=== PATIENT | female | born 1960 | race African-American/Black ===

== ENCOUNTER 2019-12-02 10:07 | Inpatient (IN) | payer OTHER ==
--- NOTE | 2019-12-02 10:41 | RAD ---
Chest AP view INDICATION: 59-year-old female with shortness breath and productive cough COMPARISON: Prior exam dated January 12, 2010 FINDINGS: Lungs: Chronic lung changes are stable. No focal airspace opacity is evident. Cardiac silhouette: There is mild cardiomegaly. Pulmonary vasculature: Normal Pleural spaces: No pleural effusion or pneumothorax is demonstrated. Upper abdomen: No abnormality seen. Osseous structures: No acute osseous abnormality. Additional findings: None. IMPRESSION: 1. Mild cardiomegaly without evidence of cardiac decompensation. 2. Stable chronic lung changes without acute infiltrate.
[2019-12-02 11:59] LABS: #Basophils 0.1 thou/uL (0.0-0.2); #Eosinphils 0.1 thou/uL (0.0-0.7); #Lymphocytes 1.6 thou/uL (1.20-3.40); #Monocytes 0.5 thou/uL (0.11-0.59); #Neutrophils 2.6 thou/uL (1.40-6.50); %Basophils 1.1 % (0.0-1.0); %Eosinophils 2.5 % (0.0-10.0); %Monocytes 9.2 % (0.0-10.0); %Neutrophils 54.3 % (42.0-75.0); Hemoglobin 12.5 g/dL (12.0-16.0); Mean Corpuscular HGB CONC 32.8 g/dL (32.0-36.0); Mean Corpuscular Hemoglobin 29.3 pg (27.0-31.0); Mean Corpuscular Volume 89.1 fL (78.0-98.0); Mean Platelet Volume 10.8 fL (7.4-10.4); Platelet Count 83 thou/uL (130-400); Platelet Morphology Comment Appears Decreased; RBC Distribution Width 14.2 % (11.5-14.5); RBC Morphology Normal; Red Blood Cell (RBC) Count 4.29 mill/uL (4.20-5.40); White Blood Cell (WBC) Count 4.8 thou/uL (4.8-10.8)
[2019-12-02 12:01] LABS: ALT (SGPT) 31 U/L (8-55); AST (SGOT) 40 U/L (5-34); Albumin 3.2 g/dL (3.5-5.0); Alkaline Phosphatase 155 U/L (40-110); Anion Gap 10 mmol/L (10-20); BUN (Urea Nitrogen) 17 mg/dL (9.8-20.1); Bilirubin, Total 0.3 mg/dL (0.2-1.2); Calc. Creatinine Clearance 0 mL/min (70-130); Calcium 8.6 mg/dL (7.8-10.44); Carbon Dioxide 25 mmol/L (22-29); Chloride 107 mmol/L (98-107); Estimated GFR-MDRD 66; Glucose 121 mg/dL (70-105); Potassium 3.1 mmol/L (3.5-5.1); Protein, Total 8.2 g/dL (6.0-8.3); Sodium 139 mmol/L (136-145)
[2019-12-02] MEDS ORDERED: Aspirin Chewable 81 MG TAB ONE (12:50)
[2019-12-02] MEDS ORDERED: Potassium Chloride 20 MEQ TAB ONE (12:50)
[2019-12-02 15:33] LABS: Troponin I 0.063 ng/mL (< 0.028)
[2019-12-02 18:21] LABS: Troponin I 0.039 ng/mL (< 0.028)
[2019-12-02] MEDS ORDERED: Guaifenesin DM 100-10/5 ML UDCUP PO PRN (19:08)
[2019-12-02] MEDS ORDERED: Senokot S 8.6-50 MG TAB PO PRN (19:08)
[2019-12-02] MEDS ORDERED: Dextrose 50% Abboject 50 ML SYRINGE SLOW IVP PRN (19:29)
[2019-12-02] MEDS ORDERED: Dextrose 5% in Water 1,000 ML IV PRN (19:29)
--- NOTE | 2019-12-02 20:23 | HP ---
PRIMARY CARE PHYSICIAN: [facility]. Also sees Dr. Guevara for her HIV medication. HISTORY OF PRESENT ILLNESS: Ms. Tamayo is a very pleasant 59-year-old female, who reported to the emergency room today after she felt worsening shortness of breath, chest tightness, and productive cough. Reports that she has had no prior testing for coronavirus and has not traveled in the last 30 days. She has been released from group home three months ago. She reports history of hypertension and COPD-type changes, but she denies any fever or chills. She reports that Dr. Guevara has seen her for this cough. They initially thought it might be her lisinopril, so he changed up her medications from lisinopril to valsartan and she reports that the cough has not improved. She reports that chest tightness is across her chest. Denies any diaphoresis or nausea with it. Does report some dyspnea on exertion. She also reports that she has been treated for hep C, while she was in group home and did finish the treatment. In the emergency room, she was found to have a decreased platelet count of 83, elevated troponin in the indeterminate range, potassium at 3.1, elevated alkaline phosphatase at 155 and AST at 40. Her ALT was 31. Lactic acid was 1. Chest x-ray shows mild cardiomegaly without any evidence of decompensation and two stable chronic lung changes without any acute infiltrate. She is going to be admitted to the telemetry unit and the COVID unit for further workup. REVIEW OF SYSTEMS: CONSTITUTIONAL: She is nontoxic appearing. She is alert and awake and oriented. EYES: She denies any eye pain. No visual changes. ENT: Denies any sore throat, rhinorrhea, or any voice changes. CARDIOVASCULAR: She does report some generalized chest pain, substernal. RESPIRATORY: Does report cough, reports sputum. Denies stridor. Does report some dyspnea on exertion. GI: She denies any abdominal pain, but she reports that her abdomen is more swollen than normal. She denies any nausea or vomiting. MUSCULOSKELETAL: Denies any changes. All systems are reviewed and are negative unless mentioned in the HPI. PAST MEDICAL HISTORY: HIV; hypertension; diabetes, type 2; hyperlipidemia; COPD; and sleep apnea. She did have hep C, which has been treated. SURGICAL HISTORY: She has had a hysterectomy and a cholecystectomy. PSYCHIATRIC HISTORY: Bipolar and depression. SOCIAL HISTORY: She is a one pack a day smoker and has for at least the last 10 years. PHYSICAL EXAMINATION: VITAL SIGNS: Blood pressure 154/96, pulse is 96, respiratory rate is 14, and pO2 sats are 96% on room air. CONSTITUTIONAL: The patient appears nontoxic. She is alert and oriented to person, place, and time. HEAD: Atraumatic and normocephalic. EYES: Pupils are equally round and reactive to light. Extraocular muscles are intact. ENT: Mouth exam is normal. Mucous membranes are moist. NECK: Normal range of motion. Trachea is midline. RESPIRATORY/CHEST: Breath sounds are clear. Chest expansion is equal. CARDIOVASCULAR: Regular rate and rhythm. Heart sounds are normal. ABDOMEN: Mildly distended. No guarding. No rebound. BACK: Normal range of motion. No tenderness. EXTREMITIES: Upper extremity; normal range of motion. Sensation intact. Radial pulses are normal. Lower extremity; normal range of motion. Pedal pulses are normal. There is no edema noted. NEURO: The patient was oriented to person, place, and time. Speech is normal. SKIN: Warm, dry, normal in color. PSYCH: Has a normal affect. ALLERGIES: NONE. CURRENT MEDICATIONS: There are no medications in the ER system. She does report that she takes three medications for her blood pressure, she takes her HIV medication and is compliant with those, and takes a medication for her diabetes. That is all she could tell me at the bedside. ASSESSMENT/PLAN: 1. Chest pain. We will trend troponins. We will see how she is doing tomorrow. On the day 2 tomorrow, may need to decide if she needs a stress test and if so, she had a COVID rule out test today and so we will have to wait till that is negative depending on the troponins. Otherwise, Cardiology might be considered and she might be able to be seen in the office depending on how her lab values and how she feels. 2. Hypertension. We will restart her home medications once reconciled. 3. History of human immunodeficiency virus. We will restart this home medication once we get the name and dose. 4. Hyperlipidemia. We will check fasting lipids in the morning and may start her on a statin, although her liver enzymes, one of the two were elevated. So, we will see what the lipid panel shows in the morning. 5. History of chronic obstructive pulmonary disease. We will put some nebs on her just in case, especially with this cough that she has and some cough medicine. 6. Smoking cessation counseling offered. 7. Deep venous thrombosis and gastrointestinal prophylaxis started. 8. Thrombocytopenia, it is unclear if this is new or acquired. 9. We will check magnesium and phos as well on her. 10. Hospital course is dependent on clinical findings. Job ID: [id number]
[2019-12-02] MEDS ORDERED: Ondansetron PF 4 MG/2 ML Vial IVP PRN (21:16)
[2019-12-02] MEDS ORDERED: Acetaminophen 325 MG TAB PO PRN (21:16)
[2019-12-02] MEDS ORDERED: Ondansetron ODT 4 MG TAB SL PRN (21:16)
[2019-12-02] MEDS: Nicotine 14 MG PATCH TD SCH (21:17)
[2019-12-02] MEDS: Famotidine 20 MG TAB PO SCH (21:43)
[2019-12-02] MEDS ORDERED: Albuterol 200 PUFF (6.7GM INHALER) INH PRN (21:55)
[2019-12-02] MEDS ORDERED: hydrALAZINE 20 MG/ML VIAL SLOW IVP SCH (22:00)
[2019-12-02] MEDS: Benzonatate 100 MG CAP PO PRN (22:35)
[2019-12-03] MEDS: Diabetic Tussin DM 5 ML UDCUP PO PRN (01:37)
[2019-12-03 05:13] LABS: #Eosinphils 0.1 thou/uL (0.0-0.7); #Lymphocytes 1.2 thou/uL (1.20-3.40); #Monocytes 0.5 thou/uL (0.11-0.59); #Neutrophils 2.5 thou/uL (1.40-6.50); %Basophils 0.3 % (0.0-1.0); %Eosinophils 1.4 % (0.0-10.0); %Lymphocytes 27.4 % (21.0-51.0); %Monocytes 11.9 % (0.0-10.0); %Neutrophils 59.1 % (42.0-75.0); Hemoglobin 11.5 g/dL (12.0-16.0); Mean Corpuscular HGB CONC 33.2 g/dL (32.0-36.0); Mean Corpuscular Hemoglobin 29.7 pg (27.0-31.0); Mean Corpuscular Volume 89.4 fL (78.0-98.0); Mean Platelet Volume 10.9 fL (7.4-10.4); Platelet Count 70 thou/uL (130-400); RBC Distribution Width 14.3 % (11.5-14.5); Red Blood Cell (RBC) Count 3.87 mill/uL (4.20-5.40); White Blood Cell (WBC) Count 4.2 thou/uL (4.8-10.8)
[2019-12-03 05:21] LABS: Phosphorus 2.5 mg/dL (2.3-4.7)
[2019-12-03 05:22] LABS: ALT (SGPT) 27 U/L (8-55); AST (SGOT) 39 U/L (5-34); Albumin 2.8 g/dL (3.5-5.0); Alkaline Phosphatase 130 U/L (40-110); Anion Gap 11 mmol/L (10-20); BUN (Urea Nitrogen) 15 mg/dL (9.8-20.1); Bilirubin, Total 0.5 mg/dL (0.2-1.2); Calc. Creatinine Clearance 121 mL/min (70-130); Calcium 8.2 mg/dL (7.8-10.44); Carbon Dioxide 21 mmol/L (22-29); Cardiac Risk 4.3 (Less than 4.5); Chloride 107 mmol/L (98-107); Cholesterol 163 mg/dl (< 200 Desired); Estimated GFR-MDRD 85; Globulin 4.5 g/dL (2.4-3.5); Glucose 123 mg/dL (70-105); HDL Cholesterol 38 mg/dL (>60 Neg Risk); LDL Cholesterol, Calculated 109 mg/dL; Magnesium 1.8 mg/dL (1.6-2.6); Potassium 3.3 mmol/L (3.5-5.1); Protein, Total 7.3 g/dL (6.0-8.3); Sodium 136 mmol/L (136-145); Triglycerides 79 mg/dL (Less than 150)
[2019-12-03] MEDS ORDERED: Potassium Chloride 20 MEQ TAB PO SCH (08:00)
[2019-12-03] MEDS: Valsartan 80 MG TAB PO SCH (08:34)
[2019-12-03] MEDS: Famotidine 20 MG TAB PO SCH ×2 (08:34→20:41)
[2019-12-03] MEDS: Hydrochlorothiazide 25 MG TAB PO SCH (08:35)
[2019-12-03] MEDS: Amlodipine 10 MG TAB PO SCH (08:35)
[2019-12-03] MEDS: Potassium Chloride 10 MEQ TAB PO SCH (08:35)
[2019-12-03] MEDS: Benzonatate 100 MG CAP PO PRN ×2 (08:56→20:45)
[2019-12-03] MEDS ORDERED: Non-Formulary Item 1 EACH (Dolutegravir Sodium [Tivicay] 50 MG) PO SCH (09:00)
[2019-12-03 12:21] LABS: SARS-CoV-2 MS2 Positive; SARS-CoV-2 N Gene Negative; SARS-CoV-2 S Gene Negative; SARS-CoV-2 orf1ab Negative
[2019-12-03] MEDS ORDERED: Iopamidol-370 76% 500 ML 1 ML ONE (13:49)
--- NOTE | 2019-12-03 14:20 | PDOC.HOSPP ---
- Subjective Encounter Date: 12/03/19 Subjective: Still has the cough. Chest and abd pain feel better. She has been coughing for over a month. Saw Dr. Guevara and he thought it might be the ACEI. Changed to ARB. No change. She previously smoked, but quit while she was in [facility] for 9.5 years. Got out in August and started smoking one PPD again. No fever. - Objective Vital Signs & Weight: Vital Signs (12 hours) Temp Pulse Resp BP Pulse Ox 12/03/19 12:10 99.5 F 99 20 145/67 H 97 12/03/19 08:40 98.0 F 94 18 198/88 H 100 Weight Admit Weight 231 lb Weight 231 lb I&O: 12/02/19 12/03/19 12/04/19 06:59 06:59 06:59 Intake Total 900 Output Total 300 200 Balance 600 -200 Result Diagrams: 12/03/19 04:27 12/03/19 04:27 Additional Labs: Accuchecks 12/02/19 21:03 POC Glucose 92 Hospitalist ROS - Medication Medications: Active Medications Generic Name Dose Route Start Last Admin Trade Name Freq PRN Reason Stop Dose Admin Amlodipine Besylate 10 mg 12/03/19 09:00 12/03/19 08:35 Norvasc PO 10 mg DAILY FUNMI Administration Benzonatate 100 mg 12/02/19 22:04 12/03/19 08:56 Tessalon PO 100 mg TIDPRN PRN Administration Cough Famotidine 20 mg 12/02/19 21:00 12/03/19 08:34 Pepcid PO 20 mg BID FUNMI Administration Guaifenesin/Dextromethorphan 15 ml 12/03/19 01:22 12/03/19 01:37 Diabetic Tussin Dm PO 15 ml Q4H PRN Administration Cough Hydrochlorothiazide 12.5 mg 12/03/19 09:00 12/03/19 08:35 Hydrochlorothiazide PO 12.5 mg DAILY FUNMI Administration Nicotine 14 mg 12/02/19 20:00 12/02/19 21:17 Nicoderm Patch TD 14 mg Q24HR FUNMI Administration Potassium Chloride 10 meq 12/03/19 09:00 12/03/19 08:35 Klor-Con 10 PO Not Given DAILY FUNMI Sodium Chloride 10 ml 12/02/19 19:08 12/02/19 22:35 Flush - Normal Saline IVF 10 ml PRN PRN Administration Saline Flush Valsartan 80 mg 12/03/19 09:00 12/03/19 08:34 Diovan PO 80 mg DAILY FUNMI Administration - Exam General Appearance: NAD, awake alert Heart: RRR, no murmur, no gallops, no rubs, normal peripheral pulses Respiratory: CTAB, no wheezes, no rales, no ronchi, normal chest expansion, no tachypnea, normal percussion Gastrointestinal: soft, non-tender, non-distended, normal bowel sounds, no palpable masses, no hepatomegaly, no splenomegaly, no bruit Extremities: no cyanosis, no clubbing, no edema Neurological: no focal deficits Musculoskeletal: normal tone Psychiatric: normal affect, normal behavior, A&O x 3 Hosp A/P (1) Chest pain Code(s): R07.9 - CHEST PAIN, UNSPECIFIED Status: Acute (2) Abdominal pain Code(s): R10.9 - UNSPECIFIED ABDOMINAL PAIN Status: Acute (3) Cough Code(s): R05 - COUGH Status: Acute (4) HIV (human immunodeficiency virus infection) Code(s): B20 - HUMAN IMMUNODEFICIENCY VIRUS [HIV] DISEASE Status: Acute (5) COPD (chronic obstructive pulmonary disease) Status: Acute - Plan CP: Minimal elevation of trops. Indeterminate range. Will discuss with Cards. Has echo pending. May need to see how that looks and then make a decision on stress test. Certainly has risk factors for CAD. Abd Pain: Non-tender on exam. GB US pending. Cough: Negative Covid. Reviewed with Dr. Guevara. DC isolation precautions. Chronic. CT chest. HTN: amlodipine, Diovan. High today. Don't think she got her meds. HIV: Continue home meds.
--- NOTE | 2019-12-03 17:07 | CT ---
CT OF THE CHEST WITH IV CONTRAST INDICATION: 59-year-old female with cough; Covid negative COMPARISON: CTA of the chest dated August 20, 2009 FINDINGS: CHEST: Lungs: Moderate emphysema is stable. No acute airspace opacities noted. Suspicious pulmonary nodule. Pleural space: No effusion. Mediastinum: There are prominent coronary artery and thoracic aortic calcifications. No pathologicall y enlarged lymph nodes are evident. Upper abdomen:The gallbladder is surgically absent. There is a cirrhotic morphology to the liver. Spl een is within normal limits. Adrenal glands are normal appearing. Osseous structures: No acute osseous abnormality. No destructive osteolytic or osteoblastic lesion i s identified. There is scattered degenerative and osteoarthritic changes. Soft tissues:Normal. IMPRESSION: 1. No acute abnormality. 2. Moderate emphysema 3. Cirrhotic morphology of the liver 4. Coronary artery and thoracic aortic calcifications.
[2019-12-03] MEDS: Nicotine 14 MG PATCH TD SCH (20:41)
[2019-12-04] MEDS: Benzonatate 100 MG CAP PO PRN ×2 (03:48→20:37)
--- NOTE | 2019-12-04 08:13 | ULT ---
RIGHT UPPER QUADRANT ULTRASOUND: HISTORY: Distended abdomen. Cirrhosis. Hepatitis C. FINDINGS: The liver has a lobulated appearance consistent with cirrhosis. There is a suggestion of a solid nod ule in the left lobe of the liver measuring 2.9 x 2.4 cm. The patient is post cholecystectomy. The common duct measures 5 mm in diameter. The right kidney and visualized portions of the pancreas are unremarkable. No free fluid is seen in Morison's pouch. Incidental note is made of a 1.1 cm hypoech oic lesion in the spleen. IMPRESSION: 1. Findings are suspicious for a left liver lobe nodule. 2. Status post cholecystectomy. 3. Hyperechoic lesion in the spleen. RECOMMENDATION: Further evaluation with CT scan using the liver mass protocol is recommended. POS: CHANO
[2019-12-04] MEDS: Diabetic Tussin DM 5 ML UDCUP PO PRN (09:23)
[2019-12-04] MEDS: Valsartan 80 MG TAB PO SCH (09:24)
[2019-12-04] MEDS: Hydrochlorothiazide 25 MG TAB PO SCH (09:25)
[2019-12-04] MEDS: Potassium Chloride 10 MEQ TAB PO SCH (09:25)
[2019-12-04] MEDS: Famotidine 20 MG TAB PO SCH ×2 (09:26→20:37)
[2019-12-04] MEDS: Amlodipine 10 MG TAB PO SCH (09:26)
[2019-12-04] MEDS: DOVATO PO SCH (09:28)
--- NOTE | 2019-12-04 11:11 | CT ---
EXAM: CT Abdomen W WO Con PROVIDED CLINICAL HISTORY: Ultrasound examination suggested liver lesion. CT exam is recommended. COMPARISON: Noncontrast CT abdomen on 06/15/2008 FINDINGS: There is linear scar versus atelectasis right lateral costophrenic angle. Lung bases are otherwise cl ear. Postcholecystectomy changes are seen. There is a lobulated contour of the margin of the liver suggesting cirrhosis. No focal hepatic mass o r abnormal area of enhancement is seen within the liver. A more prominent lobulated portion of the liver is seen involving the posterior and medial aspect of the lateral segment left hepatic lobe. Thi s corresponds to findings on ultrasound examination, but this demonstrates similar echogenicity to the liver on all phases of imaging and is most compatible with lobulated area of the hepatic parenchy ma. This is also a stable finding when compared to the prior noncontrasted CT abdomen and pelvis and 2009. This does not represent a mass. The portal vein is patent. A subcentimeter too small to characterize 8 mm hypodense lesion is seen in the lateral aspect body of the spleen. Spleen is at the upper limits of normal in size. The pancreas, bilateral adrenal glands, and kidneys demonstrate a normal CT appearance. Vascular calcifications are seen in the abdominal aorta and involving the iliac arteries. Loops of bowel are normal in caliber. There is no free fluid, fluid collection, or lymphadenopathy seen in the abdomen or pelvis. Multilevel degenerative changes are seen in the spine which are greater involving the lower lumbar sp ine. Slight retrolisthesis of L3 on L4 is identified. IMPRESSION: 1. Cirrhotic morphology of the liver. A larger lobulated portion of the liver is seen involving the m ore medial and posterior aspect of the lateral segment left hepatic lobe. This finding was also seen on study in 2008. This finding does correspond to site of abnormality on prior ultrasound examin ation. This demonstrates echogenicity similar to the adjacent hepatic parenchyma, and this does not represent a discrete mass like lesion. No hepatic mass is visualized on this exam. 2. Subcentimeter too small to characterize hypodense lesion peripheral aspect body of the spleen whic h likely corresponds to the hyperechoic focus on recent sonographic evaluation. 3. Cholecystectomy.
[2019-12-04] MEDS: Insulin Regular 300 UNITS/3 ML VIAL SC PRN (12:47)
[2019-12-04] MEDS ORDERED: Iopamidol-370 76% 500 ML 1 ML ONE (16:29)
--- NOTE | 2019-12-04 17:03 | PDOC.HOSPP ---
- Subjective Encounter Date: 12/04/19 Subjective: Patient is feeling generally well today. Her abdominal pain has significantly improved. No other complaints. - Objective Vital Signs & Weight: Vital Signs (12 hours) Temp Pulse Resp BP Pulse Ox 12/04/19 12:00 98.4 F 87 17 163/74 H 99 12/04/19 09:26 88 12/04/19 08:00 98.4 F 88 18 162/71 H 94 L Weight Admit Weight 231 lb Weight 220 lb 12.8 oz I&O: 12/03/19 12/04/19 12/05/19 06:59 06:59 06:59 Intake Total 900 790 Output Total 300 600 Balance 600 190 Result Diagrams: 12/03/19 04:27 12/03/19 04:27 Additional Labs: Accuchecks 12/04/19 12/04/19 12/03/19 10:21 06:14 17:36 POC Glucose 236 H 121 H 114 H 12/03/19 12:09 POC Glucose 112 H Hospitalist ROS - Medication Medications: Active Medications Generic Name Dose Route Start Last Admin Trade Name Freq PRN Reason Stop Dose Admin Amlodipine Besylate 10 mg 12/03/19 09:00 12/04/19 09:26 Norvasc PO 10 mg DAILY FUNMI Administration Benzonatate 100 mg 12/02/19 22:04 12/04/19 03:48 Tessalon PO 100 mg TIDPRN PRN Administration Cough Famotidine 20 mg 12/02/19 21:00 12/04/19 09:26 Pepcid PO 20 mg BID FUNMI Administration Guaifenesin/Dextromethorphan 15 ml 12/03/19 01:22 12/04/19 09:23 Diabetic Tussin Dm PO 15 ml Q4H PRN Administration Cough Hydrochlorothiazide 12.5 mg 12/03/19 09:00 12/04/19 09:25 Hydrochlorothiazide PO 12.5 mg DAILY FUNMI Administration Insulin Human Regular 0 units 12/02/19 19:29 12/04/19 12:47 Humulin R SC 3 unit .MILD SLIDING SCALE PRN Administration Mild Correctional Scale Nicotine 14 mg 12/02/19 20:00 12/03/19 20:41 Nicoderm Patch TD 14 mg Q24HR FUNMI Administration Patient's Home 0 each 12/04/19 09:00 12/04/19 09:28 Medication Dovato 50 PO 1 each -300 Mg DAILY FUNMI Administration Potassium Chloride 10 meq 12/03/19 09:00 12/04/19 09:25 Klor-Con 10 PO 10 meq DAILY FUNMI Administration Sodium Chloride 10 ml 12/02/19 19:08 12/02/19 22:35 Flush - Normal Saline IVF 10 ml PRN PRN Administration Saline Flush Valsartan 80 mg 12/03/19 09:00 12/04/19 09:24 Diovan PO 80 mg DAILY FUNMI Administration - Exam General Appearance: NAD, awake alert Respiratory: CTAB, no wheezes, no rales, no ronchi, normal chest expansion, no tachypnea, normal percussion Gastrointestinal: soft, non-tender, non-distended, normal bowel sounds, no palpable masses, no hepatomegaly, no splenomegaly, no bruit Extremities: no cyanosis, no clubbing, no edema Skin: normal turgor Musculoskeletal: normal tone Psychiatric: normal affect, normal behavior, A&O x 3 Hosp A/P (1) Chest pain Code(s): R07.9 - CHEST PAIN, UNSPECIFIED Status: Acute (2) Abdominal pain Code(s): R10.9 - UNSPECIFIED ABDOMINAL PAIN Status: Acute (3) Cough Code(s): R05 - COUGH Status: Chronic (4) HIV (human immunodeficiency virus infection) Code(s): B20 - HUMAN IMMUNODEFICIENCY VIRUS [HIV] DISEASE Status: Chronic (5) COPD (chronic obstructive pulmonary disease) Status: Chronic (6) Cirrhosis Code(s): K74.60 - UNSPECIFIED CIRRHOSIS OF LIVER Status: Acute (7) History of hepatitis C Code(s): Z86.19 - PERSONAL HISTORY OF OTHER INFECTIOUS AND PARASITIC DISEASES Status: Acute (8) History of alcohol abuse Code(s): F10.11 - ALCOHOL ABUSE, IN REMISSION Status: Acute - Plan CP: Minimal elevation of trops. Indeterminate range. Has echo pending. Unclear to me what exactly happened with orders on this. It is ordered now that has not been done as of yet. May have been postponed awaiting COVID results. Her pain appears to have resolved. Given the low troponins and get a go ahead and order a stress test. Abd Pain: Non-tender on exam. This apparently has resolved. She had an ultrasound of the abdomen today. It revealed what appeared to be a liver mass. Per radiology recommendation she had a CT of the abdomen with liver mass protocol. This failed to reveal any specific mass but was likely nodular cirrhosis seen on the ultrasound. Cirrhosis: Patient has a history of hepatitis C which was apparently treated. She also has a history of significant alcohol abuse. She was unaware of a history of cirrhosis. This was evident on prior CT scans however. Cough: Negative Covid. Reviewed with Dr. Guevara. DC isolation precautions. Chronic. CT chest with no acute findings. HTN: amlodipine, Diovan. High today. Don't think she got her meds. HIV: Continue home meds.
[2019-12-04] MEDS: Nicotine 14 MG PATCH TD SCH (20:37)
[2019-12-05] MEDS ORDERED: Sodium Chloride 0.9% 10 ML ONE (07:37)
[2019-12-05] MEDS ORDERED: Regadenoson 0.4 MG/5 ML SYRINGE ONE (08:43)
[2019-12-05] MEDS: Benzonatate 100 MG CAP PO PRN ×2 (09:36→19:15)
[2019-12-05] MEDS: Famotidine 20 MG TAB PO SCH (09:37)
[2019-12-05] MEDS: DOVATO PO SCH (09:40)
[2019-12-05] MEDS: Nicotine 14 MG PATCH TD SCH (11:57)
[2019-12-05] MEDS: Potassium Chloride 10 MEQ TAB PO SCH (11:58)
[2019-12-05] MEDS: Hydrochlorothiazide 25 MG TAB PO SCH (11:58)
[2019-12-05] MEDS: Amlodipine 10 MG TAB PO SCH (11:59)
[2019-12-05] MEDS: Valsartan 80 MG TAB PO SCH (11:59)
[2019-12-05] MEDS: Insulin Regular 300 UNITS/3 ML VIAL SC PRN ×2 (12:00→18:24)
[2019-12-05 12:25] VITALS: BMI 38.9
[2019-12-06] MEDS: Insulin Regular 300 UNITS/3 ML VIAL SC PRN (06:15)
[2019-12-06] MEDS: Potassium Chloride 10 MEQ TAB PO SCH (08:20)
[2019-12-06] MEDS: Hydrochlorothiazide 25 MG TAB PO SCH (08:20)
[2019-12-06] MEDS: Amlodipine 10 MG TAB PO SCH (08:20)
[2019-12-06] MEDS: Benzonatate 100 MG CAP PO PRN (08:23)
[2019-12-06 10:15] LABS: ALT (SGPT) 27 U/L (8-55); AST (SGOT) 35 U/L (5-34); Albumin 2.9 g/dL (3.5-5.0); Alkaline Phosphatase 131 U/L (40-110); Anion Gap 9 mmol/L (10-20); BUN (Urea Nitrogen) 18 mg/dL (9.8-20.1); Bilirubin, Total 0.3 mg/dL (0.2-1.2); Calc. Creatinine Clearance 94 mL/min (70-130); Calcium 8.7 mg/dL (7.8-10.44); Carbon Dioxide 28 mmol/L (22-29); Chloride 104 mmol/L (98-107); Estimated GFR-MDRD 68; Globulin 4.7 g/dL (2.4-3.5); Glucose 92 mg/dL (70-105); Potassium 3.9 mmol/L (3.5-5.1); Protein, Total 7.6 g/dL (6.0-8.3); Sodium 137 mmol/L (136-145)
[2019-12-06 10:31] LABS: #Eosinphils 0.1 thou/uL (0.0-0.7); #Lymphocytes 1.4 thou/uL (1.20-3.40); #Monocytes 0.4 thou/uL (0.11-0.59); #Neutrophils 2.4 thou/uL (1.40-6.50); %Basophils 0.2 % (0.0-1.0); %Eosinophils 2.5 % (0.0-10.0); %Lymphocytes 32.3 % (21.0-51.0); %Monocytes 8.5 % (0.0-10.0); %Neutrophils 56.5 % (42.0-75.0); Hemoglobin 12.1 g/dL (12.0-16.0); Mean Corpuscular HGB CONC 32.3 g/dL (32.0-36.0); Mean Corpuscular Hemoglobin 29.1 pg (27.0-31.0); Mean Corpuscular Volume 90.1 fL (78.0-98.0); Mean Platelet Volume 10.4 fL (7.4-10.4); Platelet Count 81 thou/uL (130-400); RBC Distribution Width 14.4 % (11.5-14.5); Red Blood Cell (RBC) Count 4.15 mill/uL (4.20-5.40); White Blood Cell (WBC) Count 4.3 thou/uL (4.8-10.8)
[2019-12-06] MEDS: Valsartan 80 MG TAB PO SCH (11:15)
[2019-12-06] MEDS: DOVATO PO SCH (11:16)
[2019-12-06 11:17] VITALS: BP 149/67; TEMP 99.6
--- NOTE | 2019-12-06 12:24 | NM ---
MYOCARDIAL PERFUSION SCAN: DATE: 12/06/2019. PROVIDED CLINICAL HISTORY: Chest pain. RADIOPHARMACEUTICAL: 30.4 mCi Technetium 99m labeled sestamibi IV stress. 31.2 mCi Technetium 99m labeled sestamibi IV rest. FINDINGS: There is normal, homogeneous distribution of the radiotracer throughout the left ventricular myocardi um at stress and rest. Gated data demonstrate mild inferior wall hypokinesis with LEVF of 57%. TID is 1.05. IMPRESSION: 1. No scintigraphic evidence for ischemia. 2. Calculated left ventricular ejection fraction 57%. POS: JENNIFER
--- NOTE | 2019-12-06 15:41 | DIS ---
DATE OF ADMISSION: 12/02/2019 DATE OF DISCHARGE: 12/05/2019 DISCHARGE DIAGNOSES: 1. Chest pain. 2. Emphysema. 3. Cough. 4. Abdominal pain. 5. Human immunodeficiency virus. 6. Cirrhosis. 7. History of hepatitis C. 8. History of alcohol abuse. HISTORY OF PRESENT ILLNESS: The patient is a 59-year-old female, who presented to the emergency department reporting some chest tightness, cough and shortness of breath. The patient has a history of HIV and follows with Dr. Guevara. She also has a history of incarceration, only been out about 3 months and had resumed smoking after 9-1/2 years. She had initial negative troponins as well as negative chest x-ray. She was subsequently admitted to the hospital. She had some evidence of chronic lung changes on her chest x-ray as well. Initially, the patient underwent a COVID screening, which was negative. Once that occurred, she was able to get a CT scan of the chest, which revealed some emphysematous changes as well as cirrhosis. The patient was unaware of having any prior diagnosis of cirrhosis. She subsequently had abdominal ultrasound, that looked suspicious for left lower lobe nodule. Therefore, abdominal CT scan with liver mass protocol was obtained, revealed no mass in the liver, but did show some nodular cirrhotic changes. With that, the patient was then able to have echocardiogram as well, which essentially was unremarkable, showing EF 50% to 55%, concentric LVH and suggestion of some diastolic dysfunction. Stress test then proved to be unremarkable with no evidence of ischemic findings and a calculated ejection fraction of 57% and a TID of 1.05. The patient symptomatically had improved substantially. She was eager to go home and was felt to be stable to do so. PHYSICAL EXAMINATION: VITAL SIGNS: On the day of discharge, temperature 99.6, pulse 94, respirations 20, O2 saturation 95% on room air, and BP 149/67. GENERAL: She was awake and alert. HEART: Regular. LUNGS: Clear. ABDOMEN: Benign. EXTREMITIES: No edema. DISPOSITION: The patient is discharged to home. She is to have a heart healthy diet. ACTIVITY: As tolerated. MEDICATIONS: 1. Norvasc 10 mg p.o. daily. 2. Dovato 50-300 one p.o. daily. 3. Hydrochlorothiazide 12.5 mg daily. 4. Potassium 10 mEq daily. 5. Valsartan 80 mg daily. FOLLOWUP: The patient is to follow up with Dr. Guevara. She is strongly encouraged to establish with a primary care provider and she can return to the hospital at anytime she has the need to do so. TIME SPENT: Time spent in discharge activities was less than 30 minutes. Job ID: [id number]
--- NOTE | 2019-12-09 09:37 | PQF ---
Heidy Tamayo RYAN ANDREW MD [id number] CLINICAL DOCUMENTATION CLARIFICATION FORM: POST DISCHARGE Addendum to original discharge summary date: ____ Late entry note date: __ DATE:11/10/2019 ATTN:BRYANT SAEED MD Please exercise your independent, professional judgment in responding to the clarification form. Clinical indicators are provided on the bottom of this form for your review Please check appropriate box(s): [ ] Chest pain due to Emphysema [ ] Chest pain due to Hypertensive emergency [ X ] Chest pain due to unspecified cause [ ] Other diagnosis [ ] Unable to determine For continuity of documentation, please document condition throughout progress notes and discharge summary. Thank You. CLINICAL INDICATORS - SIGNS / SYMPTOMS /LABS - Hypertensive emergency- ED record,12/01, Orlando House DO - CP: minimal elevation of trops, indeterminate range- Hospital PN, 12/02, Stephen Hernandez MD - Emphysema- DS, 12/04, Stephen Hernandez MD - some emphysematous changes as well as cirrhosis-DS, 12/04, Stephen Hernandez MD - BP: 147/106H- Vital signs-12/05 RISK FACTORS - Hypertension- H&P, 12/01, Sherie Vann - Hx of alcohol abuse- DS, 12/04, Stephen Hernandez MD TREATMENTS: - Hydrochlorothiazide.PO- AUG, 12/02 - Sodium chloride.IV- AUG, 12/04 - Albuterol sulfate INH-AUG, 12/01 Please provide a response below if a more specific term indicating a diagnosis and/or acuity level for this condition can be identified. Please exercise your independent, professional judgment in responding to the clarification form. Clinical indicators are provided at the top of this form for your review. Thank you. [ (This form is maintained as a part of the permanent medical record) 2015 [employer]. All Rights Reserved Damon ALAYNA
--- NOTE | 2019-12-17 17:01 | EKG ---
Test Reason : Blood Pressure : / mmHG Vent. Rate : 095 BPM Atrial Rate : 095 BPM P-R Int : 198 ms QRS Dur : 104 ms QT Int : 374 ms P-R-T Axes : 058 -32 059 degrees QTc Int : 469 ms Normal sinus rhythm Left axis deviation Minimal voltage criteria for LVH, may be normal variant Septal infarct , age undetermined Abnormal ECG Confirmed by CRISS MURRELL ([id number]), video editor MANSOOR TA ([id number]) on 12/17/2019 5:00:32 PM Referred By: HANDY Confirmed By:CRISS MURRELL
== END 2019-12-06 15:35 | disposition home or self-care (01) | DRG 313 ==
LOC: ERS 10:07 → ERHOLD 15:10 → OBSVTOIN 15:10 → 2SW 21:04 → 2NO 12-03 19:25
PROVIDERS: ADMIT Emergency Medicine; ATTEND Emergency Medicine
DX: R07.9 Chest pain, unspecified (principal); I16.1 Hypertensive emergency; J43.9 Emphysema, unspecified; Z21 Asymptomatic human immunodeficiency virus [HIV] infection status; K74.60 Unspecified cirrhosis of liver; Z20.828 Contact with and (suspected) exposure to other viral communicable diseases; B19.20 Unspecified viral hepatitis C without hepatic coma; F10.10 Alcohol abuse, uncomplicated; D69.6 Thrombocytopenia, unspecified; E78.5 Hyperlipidemia, unspecified; F17.210 Nicotine dependence, cigarettes, uncomplicated; G47.33 Obstructive sleep apnea (adult) (pediatric); F31.9 Bipolar disorder, unspecified; Z90.710 Acquired absence of both cervix and uterus; Z90.49 Acquired absence of other specified parts of digestive tract
CPT/HCPCS: 36415; 36416; 71045; 71260; 74170; 76705; 78452; 80053; 80061; 82553; 83605; 83735; 83880; 84100; 84443; 84484; 85025; 87635; 93005; 93017; 93306; 96374; A9500; G0378; J0360; J1815; J2785; Q9967; U0003

== ENCOUNTER 2019-12-22 13:26 | Emergency (ER) | payer OTHER ==
[2019-12-23 15:24] LABS: SARS-CoV-2 MS2 Positive; SARS-CoV-2 N Gene Positive; SARS-CoV-2 S Gene Positive; SARS-CoV-2 orf1ab Positive
== END 2019-12-22 14:30 | disposition home or self-care (01) ==
LOC: ERS 13:26
DX: U07.1 COVID-19 (principal); B20 Human immunodeficiency virus [HIV] disease; I10 Essential (primary) hypertension; E11.9 Type 2 diabetes mellitus without complications; E78.5 Hyperlipidemia, unspecified; J44.9 Chronic obstructive pulmonary disease, unspecified; G47.30 Sleep apnea, unspecified; F31.9 Bipolar disorder, unspecified; F17.210 Nicotine dependence, cigarettes, uncomplicated
CPT/HCPCS: 87635; 99283; U0003

== ENCOUNTER 2020-07-17 09:58 | Outpatient (CLI) | payer OTHER ==
--- NOTE | 2020-07-17 10:38 | RAD ---
Right hip:2 views INDICATIONS:Injury with pain COMPARISON:None FINDINGS: Femoral head contour is normal. No evidence of fracture. No soft tissue abnormality. IMPRESSION: No acute finding.
--- NOTE | 2020-07-17 10:40 | RAD ---
Right knee:2 views INDICATIONS:Knee pain COMPARISON:None FINDINGS: Joint spaces are preserved. Nall-iw-vrxddmxv degenerative changes seen with marginal osteophytes more prominent laterally. Chondrocalcinosis seen in both joint spaces. Spurring from the patella. Evidence of small joint effusion. No acute osseous abnormality. No soft tissue abnormality. IMPRESSION: Moderate degenerative change
== END 2020-07-17 09:59 | disposition home or self-care (01) ==
LOC: RAD 09:58
PROVIDERS: ATTEND Internal Medicine Infectious Disease
DX: M25.561 Pain in right knee (principal); M25.551 Pain in right hip; M17.11 Unilateral primary osteoarthritis, right knee

== ENCOUNTER 2020-10-07 10:04 | Inpatient (IN) | payer OTHER ==
[2020-10-07 11:18] LABS: #Basophils 0.1 thou/uL (0.0-0.2); #Eosinphils 0.1 thou/uL (0.0-0.7); #Lymphocytes 1.5 thou/uL (1.20-3.40); #Monocytes 0.4 thou/uL (0.11-0.59); #Neutrophils 2.3 thou/uL (1.40-6.50); %Basophils 1.5 % (0.0-1.0); %Eosinophils 1.8 % (0.0-10.0); %Lymphocytes 34.9 % (21.0-51.0); %Monocytes 9.1 % (0.0-10.0); %Neutrophils 52.7 % (42.0-75.0); Hemoglobin 13.9 g/dL (12.0-16.0); Mean Corpuscular HGB CONC 32.6 g/dL (32.0-36.0); Mean Corpuscular Hemoglobin 33.2 pg (27.0-31.0); Mean Platelet Volume 9.9 fL (7.4-10.4); Platelet Count 85 thou/uL (130-400); RBC Distribution Width 14.1 % (11.5-14.5); Red Blood Cell (RBC) Count 4.17 mill/uL (4.20-5.40); White Blood Cell (WBC) Count 4.4 thou/uL (4.8-10.8)
[2020-10-07 11:46] LABS: ALT (SGPT) 18 U/L (8-55); AST (SGOT) 26 U/L (5-34); Albumin 2.6 g/dL (3.5-5.0); Alkaline Phosphatase 57 U/L (40-110); Anion Gap 12 mmol/L (10-20); BUN (Urea Nitrogen) 12 mg/dL (9.8-20.1); Bilirubin, Total 0.6 mg/dL (0.2-1.2); Calc. Creatinine Clearance 0 mL/min (70-130); Calcium 8.9 mg/dL (7.8-10.44); Carbon Dioxide 26 mmol/L (22-29); Chloride 103 mmol/L (98-107); Globulin 4.3 g/dL (2.4-3.5); Glucose 157 mg/dL (70-105); Protein, Total 6.9 g/dL (6.0-8.3); Sodium 138 mmol/L (136-145)
[2020-10-07 11:52] LABS: Potassium 2.9 mmol/L (3.5-5.1)
[2020-10-07 12:10] LABS: CKMB 2.9 ng/mL (0-6.6)
[2020-10-07] MEDS ORDERED: Hydrochlorothiazide 25 MG TAB PO SCH (12:45)
[2020-10-07] MEDS ORDERED: Potassium Chloride 20 MEQ TAB PO SCH ×2 (12:45→20:00)
[2020-10-07] MEDS ORDERED: Potassium Chloride 20 MEQ TAB ONE (12:52)
[2020-10-07] MEDS ORDERED: Aspirin Chewable 81 MG TAB ONE (12:52)
[2020-10-07] MEDS ORDERED: Enoxaparin Sodium 100 MG/ML SYRINGE ONE (12:52)
[2020-10-07] MEDS ORDERED: Dextrose 50% Abboject 50 ML SYRINGE SLOW IVP PRN (13:08)
[2020-10-07] MEDS ORDERED: Dextrose 5% in Water 1,000 ML IV PRN (13:08)
[2020-10-07] MEDS ORDERED: HumaLOG 300 UNITS/3 ML VIAL SC PRN (13:08)
[2020-10-07] MEDS ORDERED: hydrALAZINE 20 MG/ML VIAL SLOW IVP PRN (13:13)
[2020-10-07] MEDS ORDERED: Enoxaparin Sodium 80 MG/0.8 ML SYRINGE SC SCH (13:45)
[2020-10-07] MEDS ORDERED: NIFEdipine XL 60 MG TAB PO SCH (13:45)
[2020-10-07] MEDS ORDERED: cloNIDine 0.1 MG TAB PO SCH (13:45)
[2020-10-07] MEDS ORDERED: cloNIDine 0.1 MG TAB ONE (14:25)
[2020-10-07] MEDS ORDERED: Magnesium Citrate 300 ML BOT ONE (14:25)
[2020-10-07 14:52] LABS: Troponin I 0.572 ng/mL (< 0.028)
[2020-10-07 15:06] LABS: Hemoglobin A1c 6.3 % (4.0-6.0)
[2020-10-07 16:49] VITALS: BMI 36.2
[2020-10-07 18:03] LABS: Anion Gap 11 mmol/L (10-20); BUN (Urea Nitrogen) 14 mg/dL (9.8-20.1); Calc. Creatinine Clearance 75 mL/min (70-130); Calcium 8.5 mg/dL (7.8-10.44); Carbon Dioxide 26 mmol/L (22-29); Chloride 104 mmol/L (98-107); Glucose 177 mg/dL (70-105); Potassium 3.2 mmol/L (3.5-5.1); Sodium 138 mmol/L (136-145)
[2020-10-07 18:13] LABS: Critical Call Chem Troponin I RESULT DECREASING; Troponin I 0.541 ng/mL (< 0.028)
[2020-10-07 18:26] LABS: Amphetamine Not Detected (NotDetected); Barbiturates Screen Not Detected (NotDetected); Benzodiazepine Screen Not Detected (NotDetected); Cocaine Metabolite Screen Detected (NotDetected); Medtox Control Line Valid? VALID (VALID); Medtox Reader # READER 1; Methadone Not Detected (NotDetected); Methamphetamine Not Detected (NotDetected); Opiate Screen Not Detected (NotDetected); Oxycodone Screen Not Detected (NotDetected); Phencyclidine (PCP) Not Detected (NotDetected); THC/Cannabinoid Screen Not Detected (NotDetected); Tricyclic Screen Not Detected (NotDetected)
[2020-10-07] MEDS ORDERED: Lisinopril 5 MG TAB PO SCH (19:00)
[2020-10-07 20:57] LABS: Critical Call Chem Troponin I RESULT DECREASING; Troponin I 0.539 ng/mL (< 0.028)
[2020-10-07] MEDS: Famotidine 20 MG TAB PO SCH (21:09)
[2020-10-07 21:12] LABS: SARS-CoV-2 PCR by NAA Not Detected (NotDetected)
[2020-10-07] MEDS ORDERED: Adenosine 6 MG/2 ML VIAL ONE (23:35)
[2020-10-07] MEDS ORDERED: Labetalol HCl 100 MG/20 ML VIAL ONE (23:37)
[2020-10-07] MEDS ORDERED: Furosemide 40 MG/4 ML VIAL ONE (23:39)
[2020-10-08 00:41] LABS: Hemoglobin 14.7 g/dL (12.0-16.0); Mean Corpuscular HGB CONC 31.1 g/dL (32.0-36.0); Mean Platelet Volume 10.6 fL (7.4-10.4); Platelet Count 106 thou/uL (130-400); RBC Distribution Width 14.3 % (11.5-14.5); Red Blood Cell (RBC) Count 4.59 mill/uL (4.20-5.40)
[2020-10-08 00:59] LABS: ALT (SGPT) 23 U/L (8-55); AST (SGOT) 41 U/L (5-34); Albumin 3.1 g/dL (3.5-5.0); Alkaline Phosphatase 72 U/L (40-110); Anion Gap 13 mmol/L (10-20); BUN (Urea Nitrogen) 15 mg/dL (9.8-20.1); Bilirubin, Total 0.5 mg/dL (0.2-1.2); Calc. Creatinine Clearance 68 mL/min (70-130); Calcium 8.7 mg/dL (7.8-10.44); Carbon Dioxide 29 mmol/L (22-29); Chloride 102 mmol/L (98-107); Globulin 4.8 g/dL (2.4-3.5); Glucose 169 mg/dL (70-105); Magnesium 1.8 mg/dL (1.6-2.6); Potassium 3.8 mmol/L (3.5-5.1); Protein, Total 7.9 g/dL (6.0-8.3); Sodium 140 mmol/L (136-145)
[2020-10-08 01:06] LABS: Eosinophils 1 % (0-10); Lymphocytes 50 % (21-51); MDiff Complete? YES; Metamyelocyte 1 % (0-0); Monocytes 8 % (0-10); Neutrophil 39 % (42-75); Platelet Morphology Comment Appears Decreased
[2020-10-08 01:26] LABS: CKMB 3.4 ng/mL (0-6.6)
[2020-10-08 05:08] LABS: #Lymphocytes 1.1 thou/uL (1.20-3.40); #Monocytes 0.3 thou/uL (0.11-0.59); #Neutrophils 3.9 thou/uL (1.40-6.50); %Basophils 0.2 % (0.0-1.0); %Eosinophils 0.6 % (0.0-10.0); %Monocytes 6.1 % (0.0-10.0); Hemoglobin 13.3 g/dL (12.0-16.0); Mean Corpuscular HGB CONC 32.5 g/dL (32.0-36.0); Mean Corpuscular Hemoglobin 33.1 pg (27.0-31.0); Mean Platelet Volume 10.3 fL (7.4-10.4); Platelet Count 83 thou/uL (130-400); Red Blood Cell (RBC) Count 4.01 mill/uL (4.20-5.40); White Blood Cell (WBC) Count 5.4 thou/uL (4.8-10.8)
[2020-10-08 05:25] LABS: Anion Gap 10 mmol/L (10-20); BUN (Urea Nitrogen) 15 mg/dL (9.8-20.1); Calc. Creatinine Clearance 79 mL/min (70-130); Calcium 8.6 mg/dL (7.8-10.44); Carbon Dioxide 28 mmol/L (22-29); Cardiac Risk 3.9 (Less than 4.5); Chloride 103 mmol/L (98-107); Cholesterol 154 mg/dl (< 200 Desired); Glucose 149 mg/dL (70-105); HDL Cholesterol 40 mg/dL (>60 Neg Risk); LDL Cholesterol, Calculated 99 mg/dL; Magnesium 1.6 mg/dL (1.6-2.6); Potassium 3.2 mmol/L (3.5-5.1); Sodium 138 mmol/L (136-145); Triglycerides 73 mg/dL (Less than 150)
[2020-10-08 05:38] LABS: Critical Call Chem Troponin I RESULT DECREASING; Troponin I 0.531 ng/mL (< 0.028)
[2020-10-08] MEDS: Potassium Chloride 20 MEQ TAB PO SCH ×2 (08:57→17:41)
[2020-10-08] MEDS ORDERED: Lisinopril 10 MG TAB PO SCH ×2 (09:00→21:00)
[2020-10-08] MEDS ORDERED: Enoxaparin Sodium 80 MG/0.8 ML SYRINGE SC SCH (09:00)
[2020-10-08] MEDS ORDERED: NIFEdipine XL 60 MG TAB PO SCH (09:00)
[2020-10-08] MEDS: Famotidine 20 MG TAB PO SCH (09:24)
[2020-10-08] MEDS ORDERED: Potassium Chloride 20 MEQ TAB PO SCH (09:30)
[2020-10-08] MEDS ORDERED: Furosemide 100 MG/10 ML VIAL SLOW IVP SCH (09:30)
[2020-10-08] MEDS ORDERED: Spironolactone 25 MG TAB PO SCH (09:45)
[2020-10-08] MEDS: Thiamine 100 MG TAB PO SCH (10:03)
[2020-10-08] MEDS ORDERED: Diazepam 5 MG TAB PO PRN (13:48)
[2020-10-08] MEDS ORDERED: Diazepam 5 MG TAB PO SCH (14:00)
[2020-10-08] MEDS ORDERED: Magnesium Oxide 400 MG TAB PO SCH (14:00)
[2020-10-09] MEDS ORDERED: Diazepam 5 MG TAB PO PRN (04:00)
[2020-10-09 04:35] LABS: Anion Gap 11 mmol/L (10-20); BUN (Urea Nitrogen) 15 mg/dL (9.8-20.1); Calc. Creatinine Clearance 89 mL/min (70-130); Calcium 8.7 mg/dL (7.8-10.44); Carbon Dioxide 29 mmol/L (22-29); Chloride 101 mmol/L (98-107); Glucose 110 mg/dL (70-105); Magnesium 1.6 mg/dL (1.6-2.6); Potassium 3.5 mmol/L (3.5-5.1); Sodium 137 mmol/L (136-145)
[2020-10-09] MEDS: Furosemide 40 MG/4 ML VIAL SLOW IVP SCH (07:47)
[2020-10-09] MEDS: Magnesium Oxide 400 MG TAB PO SCH (07:47)
[2020-10-09] MEDS: Thiamine 100 MG TAB PO SCH (07:48)
[2020-10-09] MEDS: Spironolactone 25 MG TAB PO SCH (07:48)
[2020-10-09] MEDS: Multivitamin W/ Minerals 1 TAB PO SCH (07:48)
[2020-10-09] MEDS: Lisinopril 20 MG TAB PO SCH ×2 (07:48→21:35)
[2020-10-09] MEDS: Folic Acid 1 MG TAB PO SCH (07:48)
[2020-10-09] MEDS: NIFEdipine XL 60 MG TAB PO SCH (07:48)
[2020-10-09] MEDS: Enoxaparin Sodium 40 MG/0.4 ML SYRINGE SC SCH (07:49)
[2020-10-09] MEDS ORDERED: Famotidine 20 MG TAB PO SCH (09:00)
[2020-10-09] MEDS ORDERED: Lisinopril 10 MG TAB PO SCH (09:00)
[2020-10-09] MEDS ORDERED: Potassium Chloride 20 MEQ TAB PO SCH (09:45)
[2020-10-09] MEDS ORDERED: Magnesium Sulfate 3 GM in Sodium Chloride 0.9% 100 ML IVPB SCH (09:45)
[2020-10-09] MEDS: HumaLOG 300 UNITS/3 ML VIAL SC PRN (17:43)
[2020-10-09] MEDS: Famotidine 20 MG TAB PO SCH (21:36)
[2020-10-10 05:05] LABS: Anion Gap 11 mmol/L (10-20); BUN (Urea Nitrogen) 13 mg/dL (9.8-20.1); Calc. Creatinine Clearance 89 mL/min (70-130); Calcium 8.5 mg/dL (7.8-10.44); Carbon Dioxide 29 mmol/L (22-29); Chloride 102 mmol/L (98-107); Glucose 114 mg/dL (70-105); Potassium 4.6 mmol/L (3.5-5.1); Sodium 137 mmol/L (136-145)
[2020-10-10] MEDS: NIFEdipine XL 60 MG TAB PO SCH (09:42)
[2020-10-10] MEDS: Famotidine 20 MG TAB PO SCH ×2 (09:42→21:45)
[2020-10-10] MEDS: Multivitamin W/ Minerals 1 TAB PO SCH (09:42)
[2020-10-10] MEDS: Thiamine 100 MG TAB PO SCH (09:42)
[2020-10-10] MEDS: Spironolactone 25 MG TAB PO SCH (09:42)
[2020-10-10] MEDS: Magnesium Oxide 400 MG TAB PO SCH (09:42)
[2020-10-10] MEDS: Carvedilol 3.125 MG TAB PO SCH ×2 (09:43→17:21)
[2020-10-10] MEDS: Folic Acid 1 MG TAB PO SCH (09:43)
[2020-10-10] MEDS: Furosemide 40 MG/4 ML VIAL SLOW IVP SCH (09:44)
[2020-10-10] MEDS: Enoxaparin Sodium 40 MG/0.4 ML SYRINGE SC SCH (09:44)
[2020-10-10] MEDS: HumaLOG 300 UNITS/3 ML VIAL SC PRN (17:21)
[2020-10-11 04:59] LABS: Anion Gap 10 mmol/L (10-20); BUN (Urea Nitrogen) 21 mg/dL (9.8-20.1); Calc. Creatinine Clearance 69 mL/min (70-130); Calcium 9.1 mg/dL (7.8-10.44); Carbon Dioxide 30 mmol/L (22-29); Chloride 102 mmol/L (98-107); Glucose 100 mg/dL (70-105); Potassium 3.9 mmol/L (3.5-5.1); Sodium 138 mmol/L (136-145)
[2020-10-11] MEDS: HumaLOG 300 UNITS/3 ML VIAL SC PRN (06:44)
[2020-10-11] MEDS: Famotidine 20 MG TAB PO SCH ×2 (09:29→21:25)
[2020-10-11] MEDS: NIFEdipine XL 60 MG TAB PO SCH (09:30)
[2020-10-11] MEDS: Folic Acid 1 MG TAB PO SCH ×2 (09:30→09:31)
[2020-10-11] MEDS: Sacubitril 49 MG/Valsartan 51 MG TABLET PO SCH ×2 (09:31→21:25)
[2020-10-11] MEDS: Magnesium Oxide 400 MG TAB PO SCH (09:31)
[2020-10-11] MEDS: Thiamine 100 MG TAB PO SCH (09:32)
[2020-10-11] MEDS: Carvedilol 3.125 MG TAB PO SCH ×2 (09:32→15:59)
[2020-10-11] MEDS: Enoxaparin Sodium 40 MG/0.4 ML SYRINGE SC SCH (09:32)
[2020-10-11] MEDS: Multivitamin W/ Minerals 1 TAB PO SCH (09:32)
[2020-10-11] MEDS: Spironolactone 25 MG TAB PO SCH (09:32)
[2020-10-12 05:17] LABS: Anion Gap 11 mmol/L (10-20); BUN (Urea Nitrogen) 19 mg/dL (9.8-20.1); Calc. Creatinine Clearance 70 mL/min (70-130); Calcium 8.4 mg/dL (7.8-10.44); Carbon Dioxide 24 mmol/L (22-29); Chloride 104 mmol/L (98-107); Glucose 139 mg/dL (70-105); Potassium 3.3 mmol/L (3.5-5.1); Sodium 136 mmol/L (136-145)
[2020-10-12] MEDS: HumaLOG 300 UNITS/3 ML VIAL SC PRN (05:57)
[2020-10-12] MEDS ORDERED: Potassium Chloride 20 MEQ TAB PO SCH (06:30)
[2020-10-12] MEDS: Carvedilol 3.125 MG TAB PO SCH (09:11)
[2020-10-12] MEDS: Spironolactone 25 MG TAB PO SCH (09:11)
[2020-10-12] MEDS: Magnesium Oxide 400 MG TAB PO SCH (09:12)
[2020-10-12] MEDS: NIFEdipine XL 60 MG TAB PO SCH (09:12)
[2020-10-12] MEDS: Multivitamin W/ Minerals 1 TAB PO SCH (09:12)
[2020-10-12] MEDS: Thiamine 100 MG TAB PO SCH (09:12)
[2020-10-12] MEDS: Famotidine 20 MG TAB PO SCH ×2 (09:12→21:13)
[2020-10-12] MEDS: Sacubitril 49 MG/Valsartan 51 MG TABLET PO SCH ×2 (09:12→21:13)
[2020-10-12] MEDS: Enoxaparin Sodium 40 MG/0.4 ML SYRINGE SC SCH (09:46)
[2020-10-12] MEDS ORDERED: Carvedilol 3.125 MG TAB PO SCH (17:00)
[2020-10-12] MEDS: Carvedilol 6.25 MG TAB PO SCH (18:00)
[2020-10-13 05:58] LABS: Anion Gap 13 mmol/L (10-20); BUN (Urea Nitrogen) 18 mg/dL (9.8-20.1); Calc. Creatinine Clearance 85 mL/min (70-130); Calcium 8.4 mg/dL (7.8-10.44); Carbon Dioxide 22 mmol/L (22-29); Chloride 106 mmol/L (98-107); Glucose 102 mg/dL (70-105); Potassium 4.1 mmol/L (3.5-5.1); Sodium 137 mmol/L (136-145)
[2020-10-13] MEDS: Famotidine 20 MG TAB PO SCH (08:28)
[2020-10-13] MEDS: Multivitamin W/ Minerals 1 TAB PO SCH (08:28)
[2020-10-13] MEDS: Spironolactone 25 MG TAB PO SCH (08:28)
[2020-10-13] MEDS: NIFEdipine XL 60 MG TAB PO SCH (08:29)
[2020-10-13] MEDS: Sacubitril 49 MG/Valsartan 51 MG TABLET PO SCH (08:29)
[2020-10-13] MEDS: Carvedilol 6.25 MG TAB PO SCH (08:29)
[2020-10-13] MEDS: Folic Acid 1 MG TAB PO SCH (08:29)
[2020-10-13] MEDS: Magnesium Oxide 400 MG TAB PO SCH (08:29)
[2020-10-13] MEDS: Enoxaparin Sodium 40 MG/0.4 ML SYRINGE SC SCH (08:30)
[2020-10-13] MEDS: Thiamine 100 MG TAB PO SCH (08:31)
[2020-10-13 11:16] VITALS: BP 136/76; TEMP 97.8
== END 2020-10-13 15:57 | disposition home or self-care (01) | DRG 917 ==
LOC: ERS 10:04 → ERHOLD 12:39 → 2NO 16:38 → CCU 23:48 → IMCU/EMU 10-08 12:35 → 2NO 10-09 14:27
PROVIDERS: ADMIT Student in an Organized Health Care Education/Training Program; ATTEND Student in an Organized Health Care Education/Training Program
DX: T40.5X1A Poisoning by cocaine, accidental (unintentional), initial encounter (principal); I21.A1 Myocardial infarction type 2; I50.23 Acute on chronic systolic (congestive) heart failure; B20 Human immunodeficiency virus [HIV] disease; I47.1 Supraventricular tachycardia; I16.1 Hypertensive emergency; I42.7 Cardiomyopathy due to drug and external agent; I11.0 Hypertensive heart disease with heart failure; E11.9 Type 2 diabetes mellitus without complications; J44.9 Chronic obstructive pulmonary disease, unspecified; F17.210 Nicotine dependence, cigarettes, uncomplicated; F10.10 Alcohol abuse, uncomplicated; D69.6 Thrombocytopenia, unspecified; E87.6 Hypokalemia; K74.60 Unspecified cirrhosis of liver; F14.10 Cocaine abuse, uncomplicated; R94.31 Abnormal electrocardiogram [ECG] [EKG]; E78.5 Hyperlipidemia, unspecified; Z20.822 Contact with and (suspected) exposure to COVID-19; F31.9 Bipolar disorder, unspecified; Z90.710 Acquired absence of both cervix and uterus; Z90.49 Acquired absence of other specified parts of digestive tract; Z86.19 Personal history of other infectious and parasitic diseases
CPT/HCPCS: 36415; 36416; 71045; 80048; 80053; 80061; 80306; 82553; 83036; 83735; 83880; 84100; 84443; 84484; 85025; 87635; 93005; 93010; 93306; 93798; 94660; 94760; J0360; J1650; J1815; J1940; J3475; J3490; U0003; U0005

== ENCOUNTER 2021-03-04 00:09 | Emergency (ER) | payer OTHER | END 2021-03-04 01:00 | LOC: ERS 00:09 | DX: Z02.89 Encounter for other administrative examinations (principal); I10 Essential (primary) hypertension; R60.0 Localized edema; E11.9 Type 2 diabetes mellitus without complications; E78.5 Hyperlipidemia, unspecified; J44.9 Chronic obstructive pulmonary disease, unspecified; G47.30 Sleep apnea, unspecified; F17.210 Nicotine dependence, cigarettes, uncomplicated; Z21 Asymptomatic human immunodeficiency virus [HIV] infection status | CPT/HCPCS: 99283 ==

== ENCOUNTER 2021-03-30 12:09 | Observation (INO) | payer OTHER ==
[2021-03-30 13:31] LABS: Bacteria/HPF 1+ HPF (None Seen); Bilirubin Negative (Negative); Blood, Urine Trace (Negative); Clarity Clear (Clear); Glucose, Urine (Dipstick) Normal (Negative); Ketone, Urine Negative (Negative); Leukocyte 25 Leu/uL (Negative); Nitrite Negative (Negative); Protein, Urine (Dipstick) 200 mg/dL (Neg-Trace); Specific Gravity, Urine 1.012 (1.002-1.036); Squamous Epithelial 0-3 HPF (0-3); Urobilinogen Normal mg/dL (Less than 2); WBC/HPF 0-3 HPF (0-3); pH, Urine 7.5 (5.0-9.0)
[2021-03-30 13:51] LABS: #Basophils 0.1 thou/uL (0.0-0.2); #Eosinphils 0.2 thou/uL (0.0-0.7); #Lymphocytes 1.5 thou/uL (1.20-3.40); #Monocytes 0.3 thou/uL (0.11-0.59); #Neutrophils 1.4 thou/uL (1.40-6.50); %Basophils 1.5 % (0.0-1.0); %Eosinophils 4.5 % (0.0-10.0); %Monocytes 8.6 % (0.0-10.0); %Neutrophils 42.5 % (42.0-75.0); Hemoglobin 14.1 g/dL (12.0-16.0); Mean Corpuscular HGB CONC 34.3 g/dL (32.0-36.0); Mean Corpuscular Hemoglobin 34.2 pg (27.0-31.0); Mean Corpuscular Volume 99.5 fL (78.0-98.0); Mean Platelet Volume 10.3 fL (7.4-10.4); Platelet Count 69 thou/uL (130-400); RBC Distribution Width 11.1 % (11.5-14.5); Red Blood Cell (RBC) Count 4.12 mill/uL (4.20-5.40); White Blood Cell (WBC) Count 3.4 thou/uL (4.8-10.8)
[2021-03-30] MEDS ORDERED: Amlodipine 5 MG TAB ONE (13:52)
[2021-03-30 14:17] LABS: ALT (SGPT) 20 U/L (8-55); AST (SGOT) 23 U/L (5-34); Albumin 3.3 g/dL (3.4-4.8); Alkaline Phosphatase 77 U/L (40-110); Anion Gap 14 mmol/L (10-20); BUN (Urea Nitrogen) 16 mg/dL (9.8-20.1); Bilirubin, Total 0.5 mg/dL (0.2-1.2); Calc. Creatinine Clearance 0 mL/min (70-130); Calcium 8.9 mg/dL (7.8-10.44); Carbon Dioxide 23 mmol/L (23-31); Chloride 102 mmol/L (98-107); Globulin 5.2 g/dL (2.4-3.5); Glucose 119 mg/dL (80-115); Potassium 4.2 mmol/L (3.5-5.1); Protein, Total 8.5 g/dL (5.8-8.1); Sodium 135 mmol/L (136-145)
[2021-03-30] MEDS ORDERED: Hydrochlorothiazide 25 MG TAB PO SCH (14:30)
[2021-03-30 15:24] LABS: CKMB 1.4 ng/mL (0-6.6)
[2021-03-30] MEDS ORDERED: Nitroglycerin 2% Ointment 1 INCH/1 GM Packet ONE (16:01)
[2021-03-30] MEDS ORDERED: hydrALAZINE 20 MG/ML VIAL ONE (16:03)
[2021-03-30] MEDS ORDERED: Aspirin Chewable 81 MG TAB ONE (16:58)
[2021-03-30] MEDS ORDERED: Acetaminophen 650 MG Suppository PR PRN (17:39)
[2021-03-30] MEDS ORDERED: Senokot S 8.6-50 MG TAB PO PRN (17:39)
[2021-03-30] MEDS ORDERED: Acetaminophen 325 MG TAB PO PRN (17:39)
[2021-03-30] MEDS ORDERED: Calcium Carbonate 500 MG ChewTAB PO PRN (17:39)
[2021-03-30] MEDS ORDERED: Ondansetron ODT 4 MG TAB PO PRN (17:39)
[2021-03-30] MEDS ORDERED: Ondansetron PF 4 MG/2 ML Vial IVP PRN (17:39)
[2021-03-30] MEDS ORDERED: hydrALAZINE 20 MG/ML VIAL SLOW IVP PRN (17:47)
[2021-03-30 18:38] VITALS: BMI 35.2
[2021-03-30 19:15] LABS: Troponin I 0.104 ng/mL (< 0.028)
[2021-03-30 21:27] LABS: Troponin I 0.087 ng/mL (< 0.028)
[2021-03-30] MEDS: Sacubitril 49 MG/Valsartan 51 MG TABLET PO SCH (22:23)
[2021-03-31 05:59] LABS: #Eosinphils 0.2 thou/uL (0.0-0.7); #Lymphocytes 1.6 thou/uL (1.20-3.40); #Monocytes 0.4 thou/uL (0.11-0.59); #Neutrophils 1.7 thou/uL (1.40-6.50); %Eosinophils 4.8 % (0.0-10.0); %Monocytes 10.4 % (0.0-10.0); %Neutrophils 43.7 % (42.0-75.0); Hemoglobin 12.9 g/dL (12.0-16.0); Mean Corpuscular HGB CONC 33.2 g/dL (32.0-36.0); Mean Corpuscular Hemoglobin 32.9 pg (27.0-31.0); Mean Corpuscular Volume 98.9 fL (78.0-98.0); Mean Platelet Volume 9.9 fL (7.4-10.4); Platelet Count 76 thou/uL (130-400); RBC Distribution Width 11.1 % (11.5-14.5); Red Blood Cell (RBC) Count 3.94 mill/uL (4.20-5.40); White Blood Cell (WBC) Count 3.9 thou/uL (4.8-10.8)
[2021-03-31 06:05] LABS: Anion Gap 11 mmol/L (10-20); BUN (Urea Nitrogen) 22 mg/dL (9.8-20.1); Calc. Creatinine Clearance 64 mL/min (70-130); Carbon Dioxide 27 mmol/L (23-31); Chloride 102 mmol/L (98-107); Glucose 117 mg/dL (80-115); Sodium 136 mmol/L (136-145)
[2021-03-31] MEDS ORDERED: Carvedilol 6.25 MG TAB PO SCH (08:00)
[2021-03-31] MEDS: Spironolactone 25 MG TAB PO SCH (08:28)
[2021-03-31] MEDS: Folic Acid 1 MG TAB PO SCH (08:28)
[2021-03-31] MEDS: Multivitamin W/ Minerals 1 TAB PO SCH (08:28)
[2021-03-31] MEDS: Thiamine 100 MG TAB PO SCH (08:28)
[2021-03-31] MEDS: Magnesium Oxide 400 MG TAB PO SCH (08:28)
[2021-03-31] MEDS: LAMIVUDINE PO SCH (08:30)
[2021-03-31] MEDS: DOLUTEGRAVIR SODIUM PO SCH (08:30)
[2021-03-31] MEDS ORDERED: NIFEdipine XL 60 MG TAB PO SCH ×3 (09:00→10:15)
[2021-03-31] MEDS: Enoxaparin Sodium 40 MG/0.4 ML SYRINGE SC SCH (09:04)
[2021-03-31] MEDS: Sacubitril 49 MG/Valsartan 51 MG TABLET PO SCH ×2 (09:04→21:40)
[2021-03-31] MEDS ORDERED: Carvedilol 25 MG TAB PO SCH ×4 (09:15→17:00)
[2021-03-31 11:58] LABS: SARS-CoV-2 PCR by NAA Not Detected (NotDetected)
[2021-03-31] MEDS: Carvedilol 25 MG TAB PO SCH (17:11)
[2021-04-01] MEDS ORDERED: NIFEdipine XL 60 MG TAB PO SCH (09:00)
[2021-04-01] MEDS: Thiamine 100 MG TAB PO SCH (09:03)
[2021-04-01] MEDS: Spironolactone 25 MG TAB PO SCH (09:03)
[2021-04-01] MEDS: Sacubitril 49 MG/Valsartan 51 MG TABLET PO SCH (09:03)
[2021-04-01] MEDS: Magnesium Oxide 400 MG TAB PO SCH (09:04)
[2021-04-01] MEDS: Folic Acid 1 MG TAB PO SCH (09:04)
[2021-04-01] MEDS: LAMIVUDINE PO SCH (09:04)
[2021-04-01] MEDS: Enoxaparin Sodium 40 MG/0.4 ML SYRINGE SC SCH (09:04)
[2021-04-01] MEDS: Multivitamin W/ Minerals 1 TAB PO SCH (09:04)
[2021-04-01] MEDS: DOLUTEGRAVIR SODIUM PO SCH (09:04)
[2021-04-01] MEDS: Carvedilol 25 MG TAB PO SCH (10:56)
[2021-04-01 12:06] VITALS: BP 119/60; TEMP 98.3
== END 2021-04-01 01:45 ==
LOC: ERS 12:09 → EEVIPCON 12:09 → 2SW 16:44
PROVIDERS: ADMIT Family Medicine; ATTEND Family Medicine
DX: I16.1 Hypertensive emergency (principal); N17.9 Acute kidney failure, unspecified; I11.0 Hypertensive heart disease with heart failure; I50.20 Unspecified systolic (congestive) heart failure; B20 Human immunodeficiency virus [HIV] disease; E11.9 Type 2 diabetes mellitus without complications; E78.5 Hyperlipidemia, unspecified; J44.9 Chronic obstructive pulmonary disease, unspecified; R94.31 Abnormal electrocardiogram [ECG] [EKG]; K74.60 Unspecified cirrhosis of liver; F14.20 Cocaine dependence, uncomplicated; I34.0 Nonrheumatic mitral (valve) insufficiency; I25.2 Old myocardial infarction; Z87.891 Personal history of nicotine dependence; Z79.899 Other long term (current) drug therapy; Z20.822 Contact with and (suspected) exposure to COVID-19
CPT/HCPCS: 36415; 71045; 80048; 80053; 81003; 81015; 82553; 83880; 84484; 85025; 93005; 93306; 96372; 96374; G0378; J0360; J1650; U0003; U0005